=== PATIENT | female | born 1955 | race Two or more races ===

== ENCOUNTER → 2017-02-21 | Outpatient (CLI) | payer OTHER, MEDICAID ==
[~2017-02-21] MED LIST: /ESCI10TA; XANA1TAB2; [UNRECOGNIZED DRUG - REMARK]
--- NOTE | 2017-03-05 00:11 | ECWPNPC ---
PATIENT NAME: NEERU VOSS : 1955 GENDER: FEMALE VISIT DATE: 02/21/2017 DISCHARGE DATE: 02/21/17 1147 VISIT LOCKED DATE TIME: PHYSICIAN: SHERYL LU RESOURCE: SHERYL LU REASON FOR APPOINTMENT 1. BACK PAIN/LEG NUMBNESS HISTORY OF PRESENT ILLNESS HISTORY OF PRESENT ILLNESS: PAIN THE PATIENT DESCRIBES THE PAIN... FALL RISK SCREENING: SCREENING :NO FALLS IN THE PAST YEAR TODAY'S VISIT: NOTES: REFERRED BY DR HAWKINS FOR CHRONIC LOW BACK PAIN UNRESPONSIVE TO CONSERVATIVE TREATMENT INCLUDING PHYSICAL THERAPY AND MEDS.ONSET OF PAIN AFTER HORSEBACK RIDING EVENT 2008. HAD TRAUMATIC BRAIN INJURY WHEN AWAKE HAD NUMBNESS CIRCUM FROM JUST ABOVE THE KNEEALL THE WAY TO THE FOOT. WORSE DAY PROGRESSES. PAIN IS CONSISTANT THROUGHOUT ALL THE WAY TO THE FOOT. PAIN IS A DEEP ACHE FROM THE BONE. HAD RECENT INJECT INJECTION IN HIP AREA IN HIP AREA WHICH BROUGHT THE FIRST RELIEF TO THE LOW BACK HAS HOME PT AND US TO LOW BACK HELPS. TENS CAN BE HELPFUL. HAD BEEN SEEN AT [facility] FOR ALMOST 2 YEARSWAS EVENTUALLY SEEN AT [facility] AND EVENTUALLY HAD 4 DIFFERNT SURGERY. HAD VASCULAR COMPROMISE TO LEFT EYE WHICH PRODUCED A 3RD NERVE PALSY AND HEADACHE. TREATS WITH STEROIDS AND SUMATRIPTAN. HAS ALSO USED HYPERBARIC OXYGEN WHICH THEY FELT IMPROVED HER BRAIN HEALING. HARDEST THING IS TO STAND AND WALK AND PROLONGED. RIDING IN CAR IS DIFFICULT. NO SPECIFIC SLEEP ISSUES WITH PAIN. HAS WORKED WITH DR CASTRO WITH [facility]. CURRENT MEDICATIONS TAKING SUMATRIPTAN SUCCINATE 100 MG TABLET 1 TABLET NEEDED ORALLY TWICE A DAY TAKING VALIUM 5 MG TABLET 1 TABLET NEEDED ORALLY TWICE A DAY TAKING HYDROXYZINE HCL 50 MG TABLET 1 TABLET NEEDED ORALLY BID TAKING ESTRADIOL 10 % CREAM TAKING PREDNISONE 20 MG TABLET 1 TABLET ORALLY ONCE A DAY PRN TAKING LIDODERM 5 % PATCH 1 PATCH TO SKIN REMOVE AFTER 12 HOURS EXTERNALLY ONCE A DAY TAKING DHEA 50 50 MG CAPSULE ORALLY TAKING VITAMIN D 2000 UNIT TABLET 1 TABLET ORALLY ONCE A DAY TAKING VITAMIN B COMPLEX - CAPSULE ORALLY TAKING OMEGA 3 350 MG CAPSULE 1 CAPSULE ORALLY ONCE A DAY TAKING L-TRYPTOPHAN 500 MG CAPSULE 1 CAPSULE ORALLY ONCE A DAY TAKING MAGNESIUM 200 MG TABLET 2 TABLETS WITH A MEAL ORALLY ONCE A DAY TAKING BIOTIN 5000 5 MG CAPSULE 1 CAPSULE ORALLY ONCE A DAY TAKING PUMPKIN SEED OIL - CAPSULE ORALLY TAKING ZINC 30 MG TABLET 1 TABLET WITH A MEAL ORALLY ONCE A DAY UNKNOWN SUMAVEL DOSEPRO 6 MG/0.5ML SOLUTION JET-INJECTOR SUBCUTANEOUS UNKNOWN AZELASTINE HCL 0.1 % SOLUTION NASAL MEDICATION LIST REVIEWED AND RECONCILED WITH THE PATIENT PAST MEDICAL HISTORY PTSD -CHRONIC HEAD INJURY WITH SUBARACHNOID HEMMORRAGE (2008) TRAUMATIC BRAIN INJURY (2010) WITH SUBARACHNOID HEMORRAGE HYPERLIPIDEMIA MIGRAINES GERD INSOMNIA, MOOD DISORDER, ADJUSTMENT DISORDER HERPES SYMPLEX TYPE 1 BASAL CELL CARCINOMA CHRONIC OTITIS MEDIA SECONDARY INSOMNIA BLADDER HYPERSENSITIVITY CRANIAL NERVE INJURY LEFT OCULOMOTOR ADJUSTMENT DISORDER HYPERLIPIDEMIA MOOD DISORDER ELEVATED LIVER ENZYMES GERD W/O ESOPHAGITIS ALLERGIES NEURONTIN: BLURRED VISION, RASH, ANXIETY: ALLERGY BACTRIM DS: NOSEBLEEDS: SIDE EFFECTS AMITRIPTYLINE HCL: AGITATION: SIDE EFFECTS LUNESTA: RESTLESNESS: SIDE EFFECTS TRAZODONE HCL: SLEEPLESSNESS: SIDE EFFECTS TRILEPTAL: DOUBLE VISION: ALLERGY AVELOX: DOUBLE VISION: ALLERGY MOVANTIC: ALLERGY DILAUDID: HEADACHE: ALLERGY OMNICEF: ALLERGY ABILIFY: AGITATION: ALLERGY DEPAKOTE: SLEEPLESS: ALLERGY LAMICTAL: RASH: ALLERGY WELLBUTRIN: SLEEPLESS: ALLERGY LATEX: RASH: ALLERGY PCN: FEVER-RASH: ALLERGY SULFACETAMIDE: ALLERGY PRAZOSIN: SYNCOPE: ALLERGY RIZATRIPTAN: AGITATION: ALLERGY BELSOMRA: DIZZINESS: ALLERGY ROZEREM: SLEEPLESS: ALLERGY TEMAZEPAM: INEFFECTIVE: LACK OF THERAPEUTIC EFFECT NARATRIPTAN: EXTREME FATIGUE, MUSCLE ACHE: ALLERGY CORICIDIN: INEFFECTIVE: LACK OF THERAPEUTIC EFFECT TAURIN: INEFFECTIVE: LACK OF THERAPEUTIC EFFECT TOVIAZ: DOUBLE VISION: ALLERGY METHYLFOLATE: HEADACHES: SIDE EFFECTS CLONAZEPAM: INEFFECTIVE: LACK OF THERAPEUTIC EFFECT SAPHRIS: MUSCLE TWITCHING: SIDE EFFECTS PREGNENOLONE: HEAVINESS IN CHEST: SIDE EFFECTS RISPERADONE: AGITATION: SIDE EFFECTS TRAMADOL: HEADACHE, NAUSEA, DIZZINESS: SIDE EFFECTS SURGICAL HISTORY TONSILECTOMY HEMORRHOIDECTOMY HAYLEY SALPINGOOOPHORECTOMY ESOPHAGUS STRETCH 2017 EYE SURGERY X4 MUSCLE ADJUSTMENT LEFT EAR TUBE FAMILY HISTORY FATHER: 47 YRS, DIAGNOSED WITH HYPERTENSION, HEART DISEASE MOTHER: ALIVE 88 YRS SIBLINGS: ALIVE 1DAUGHTER(S) . 4 BROTHERS, 1 SISTER. SOCIAL HISTORY GENERAL: TOBACCO USE ARE YOU A:NONSMOKER LUNG CANCER SCREENING SMOKING STATUS:NON SMOKER ALCOHOL SCREENING POINTS0 INTERPRETATIONNEGATIVE UATSDIN STILDKSG73 NONE LANGUAGE LANGUAGES SPOKEN:TAIWANESE LEARNING BARRIERS / SPECIAL NEEDS BARRIERS TO LEARNING?YES COMMENTS LONG AND SHORT TERM MEMORY LOSS HEARING IMPAIRED?YES VISION IMPAIRED?YES :CORRECTIVE LENSES COGNITIVELY IMPAIRED?YES :LEARNING DISABILITY READINESS TO LEARN?YES LEARNING PREFERENCES?YES :BOOKLETS, HANDOUTS, DEMONSTRATION/VERBAL INSTRUCTION HOSPITALIZATION/MAJOR DIAGNOSTIC PROCEDURE SURGERY RELATED REVIEW OF SYSTEMS REVIEWED BY: PROVIDER: SHERYL LUNA . CONSTITUTIONAL: ANY CHANGE IN YOUR MEDICAL CONDITION? NO . CHILLS NO . FEVER NO . INFECTION: DO YOU HAVE NEW INFECTIONS? NO . DO YOU HAVE HISTORY OF MRSA? NO . MUSCULOSKELETAL: ANY NEW PATTERNS OF PAIN OR NUMBNESS? NO . GASTROENTEROLOGY: ANY NEW CHANGE IN BOWEL CONTROL? YES, PT STATES SINCE TRAUMATIC BRAIN INJURY, LOSS OF BLADDER AND BOWEL CONTROL . GENITOURINARY: ANY NEW CHANGE IN BLADDER CONTROL? YES, PT STATES SINCE TRAUMATIC BRAIN INJURY, LOSS OF BOWEL AND BLADDER CONTROL . IS THERE A CHANCE YOU COULD BE ? NO . HEMATOLOGY/LYMPH: DO YOU TAKE ANY BLOOD THINNERS? (FOR EXAMPLE- COUMADIN, PLAVIX, AGGRENOX, PLATEL, PRADAXA, OR XARELTO) NO . WHEN WAS YOUR LAST DOSE? DATE: TIME: . NEUROLOGY: HAVE YOU FALLEN IN THE PAST 6 MONTHS? NO . ANY NEW EXTREMITY NUMBNESS OR WEAKNESS? NO . HEADACHE LONG HISTORY OF HORMONE INDUCED MIGRAINES WHICH IMPROVED WITH HYSTER 2003. HAD SINUS HEADAXHES AFTER THIS INTERMITTANT THEY WERE NOT OF THE SAME SEVERITY. AFTER HEAD INJURY HEADACHES BEGAN BEHIND LEFT EYE. OVER LAST YEAR ARE CONSTANT, BEHIND LEFT EYE. MARY TRIPTAN CAN HELP. IF NAUSEA STARTS GOES TO ER [facility] AND THEY DO IV MEDS WHICH BRING IT UNDER CONTROL. +PHOTO, +/-PHONO. FEELS WEAK ALL OVER, NO DIFFICULTY WITH WORD FINDING. HAS HAD 4 TREATMENT WITH BOTOX WITH NO RESPOSE (DENT NEUROSURGICAL) . CARDIOLOGY: DO YOU HAVE A PACEMAKER OR DEFIBRILLATOR? NO . RESPIRATORY: HAVE YOU BEEN SICK IN THE PAST WEEK? NO . FEVER NO . FLU LIKE SYMPTOMS? NO . COUGH NO . INTEGUMENTARY: DO YOU HAVE ANY RASHES OR OPEN SORES? NO . ALLERGIC/IMMUNO: ARE YOU ALLERGIC TO SHELLFISH OR IV DYE? NO . ANY NEW ALLERGIES? NO . PSYCHIATRIC: DO YOU HAVE THOUGHTS OF HURTING YOURSELF OR SOMEONE ELSE? NO . ARE YOU ABUSED, NEGLECTED, OR IN AN UNSAFE ENVIRONMENT? NO . ENDOCRINOLOGY: ARE YOU DIABETIC? NO . OTHER: DO YOU NEED ANY PRESCRIPTIONS? NO . IF YES, PLEASE LIST: ____ . ANY NEW PROBLEMS WITH YOUR MEDICATIONS? NO . WHEN DID YOU LAST EAT? ____ . WHEN DID YOU LAST DRINK? ____ . WHAT DID YOU LAST DRINK? ____ . NAME OF PERSON DRIVING YOU HOME? ____ . DO YOU HAVE ANY OTHER QUESTIONS OR CONCERNS NO . VITAL SIGNS WT 190 LBS, HT 59 IN, BMI 38.37 INDEX, BP 159/105 MM HG, HR 98 /MIN, RR 18 /MIN, TEMP 98 F,0 F, OXYGEN SAT % 97%, NA INITIALS AW 0858, REVIEWED BY: EMLET NURSE KNOW ABOUT BP. EXAMINATION GENERAL EXAMINATION: GENERAL APPEARANCE:WELL GROOMED. ACCOMPANIES PATIENT AND AT TIMES INSERTS SELF INTO DISCUSSION TO GIVE ANSWERS. PSYCHALERT , ORIENTED X 3 , APPROPRIATE MOOD AND AFFECT . HEENT:NORMOCEPHALIC, NO LYMPHADENOPATHY, NO THYROMEGLY. LUNGS:CLEAR TO AUSCULTATION BILATERALLY, NO WHEEZES, RALES OR RHONCHI. HEART:HEART RATE REGULAR, NORMAL S1S2, NO MURMURS, CLICK OR RUBS, NO CAROTID BRUITS. MUSCULOSKELETAL:IS ABLE TO FLEX TO 90+DEGREES , EXTEND TO 20 DEGREES AND ROTATE WITHOUT DIFFICULTY. SOME WEAKNESS WITH UPPER STRENGTH., NO SIGNIFICANT WEAKNESS BILATERAL LOWER EXTREMITIES RIGHT LEG STIFF. , TRIGGER POINTS AND TIGHT FIBROUS BANDS IDENTIFIED OVER CERVICAL PARASPINOUS MUSCLES AND ACROSS THE LUMBOSACRAL AXIS.. EXTREMITIES:COMPRESSION SOCK FROM MID THIGHT TO FOOT ON RIGHT. TRACE EDEMA APPRECIATED RLE.. NEUROLOGIC EXAM: DTR'S TRACE TO ABSENT RLE, 1+ BILATERAL UPPER EXTREMITIES, LEFT LOWER EXTREMITY. OTHER. GAZE MILDLY DISCONG WITH WEAKNESS NOTED ON RIGHT. . EOM S INTACT WITHOUT NYSTAGMUS. GOOD SHOULDER SHRUG. SPEACH DELIBERATE BUT NONDYSARTHIC. SIGNIFICANT LOSS OF SENSATION FROM HIP TO TOES RIGHT LOWER EXTREMITY ONLY . DIAGNOSTIC TESTS REVIEWEDMRI OF LUMBAR SPINE COMPLETED 08/10/15 REVIEWED WITH PATIENT AND . DISC PROTRUSION WITH IMPINGEMENT NOTED AT L3-4. . ASSESSMENTS LUMBAR FACET ARTHROPATHY - M12.88 (PRIMARY) LUMBAR DISC DISPLACEMENT WITHOUT MYELOPATHY - M51.26 TREATMENT LUMBAR FACET ARTHROPATHY INJECTION FACET JOINT/NERVE KAELA/SHERYL SILVA 02/21/2017 11:18:22 AM > DIAGNOSTIC RIGHT LUMBAR FACET BLOCK NOTES: CONSIDER FOLLOWUP AT [facility], [place] OR [facility] REGARDING CENTAL PAIN SYNDROME - POSSIBLE THALMIC INJURY WITH HEAD INJRY,FACET JOINT INJECTION MATERIAL WAS PRINTED, REVIEWED AND GIVEN TO PT. PROCEDURE CODES FA211 ESTABILISHED PATIENT [facility] CHARGE DISPOSITION & COMMUNICATION FOLLOW UP AFTER INJECTION (REASON: CHECK AUTH FOR DIAGNOSTIC LUMBAR FACET BLOSK L3-4, L4-5 AND L5-S1 RIGHT) ELECTRONICALLY SIGNED BY RISA LACKEY ON 03/04/2017 AT 10:21 AM EDT DISCLAIMER : THIS IS A VISIT SUMMARY EXTRACTED FROM THE [employer] CHART. IT IS NOT A COPY OF THE [employer] PROGRESS NOTE. MTDD
== END ==
LOC: M PAIN 09:00
PROVIDERS: ATTEND Nurse Practitioner Family
DX: G89.29 Other chronic pain (principal); M12.88 Other specific arthropathies, not elsewhere classified, other specified site; M51.26 Other intervertebral disc displacement, lumbar region; F43.10 Post-traumatic stress disorder, unspecified; E78.5 Hyperlipidemia, unspecified; G43.909 Migraine, unspecified, not intractable, without status migrainosus; K21.9 Gastro-esophageal reflux disease without esophagitis; G47.00 Insomnia, unspecified; F43.20 Adjustment disorder, unspecified; Z88.1 Allergy status to other antibiotic agents; Z91.040 Latex allergy status; Z88.2 Allergy status to sulfonamides; Z88.5 Allergy status to narcotic agent; Z88.8 Allergy status to other drugs, medicaments and biological substances; Z79.891 Long term (current) use of opiate analgesic; Z79.899 Other long term (current) drug therapy; Z87.820 Personal history of traumatic brain injury

== ENCOUNTER → 2017-03-26 | Outpatient (CLI) | payer BC, OTHER, MEDICAID ==
--- NOTE | 2017-04-07 23:54 | ECWPNPC ---
PATIENT NAME: NEERU VOSS : 1955 GENDER: FEMALE VISIT DATE: 03/26/2017 DISCHARGE DATE: 03/26/17 1334 VISIT LOCKED DATE TIME: PHYSICIAN: CRISTINO CHINO RESOURCE: CRISTINO CHINO REASON FOR APPOINTMENT 1. LOW BACK PAIN HISTORY OF PRESENT ILLNESS HISTORY OF PRESENT ILLNESS: PAIN THE PATIENT DESCRIBES THE PAIN... 61 YEAR OLD FEMALE PATIENT WITH HISTORY OF CHRONIC LOW BACK PAIN. PATIENT DESCRIBES THE PAIN ACHING, STABBING, SORE, TENDER, WITH A PAIN SCORE OF 6/10. PATIENT REPORTS HAVING TIGHTNESS IN HER BACK AND REPORTS IT MAKES IT DIFFICULT TO DO EVERYDAY THIS. CURRENTLY THE PATIENT IS USING LIDODERM PATCH TO AID IN PAIN RELIEF. PATIENT DENIES UNEXPLAINABLE WEIGHT LOSS, FEVER, CHILLS, NEW CHANGES ON HER URINARY OR BOWEL CONTROL. FALL RISK SCREENING: SCREENING :NO FALLS IN THE PAST YEAR CURRENT MEDICATIONS TAKING SUMATRIPTAN SUCCINATE 100 MG TABLET 1 TABLET NEEDED ORALLY TWICE A DAY TAKING VALIUM 5 MG TABLET 1 TABLET NEEDED ORALLY TWICE A DAY TAKING HYDROXYZINE HCL 50 MG TABLET 1 TABLET NEEDED ORALLY BID TAKING ESTRADIOL 10 % CREAM TAKING PREDNISONE 20 MG TABLET 1 TABLET ORALLY ONCE A DAY PRN TAKING LIDODERM 5 % PATCH 1 PATCH TO SKIN REMOVE AFTER 12 HOURS EXTERNALLY ONCE A DAY TAKING DHEA 50 50 MG CAPSULE ORALLY TAKING VITAMIN D 2000 UNIT TABLET 1 TABLET ORALLY ONCE A DAY TAKING VITAMIN B COMPLEX - CAPSULE ORALLY TAKING OMEGA 3 350 MG CAPSULE 1 CAPSULE ORALLY ONCE A DAY TAKING L-TRYPTOPHAN 500 MG CAPSULE 1 CAPSULE ORALLY ONCE A DAY TAKING MAGNESIUM 200 MG TABLET 2 TABLETS WITH A MEAL ORALLY ONCE A DAY TAKING BIOTIN 5000 5 MG CAPSULE 1 CAPSULE ORALLY ONCE A DAY TAKING PUMPKIN SEED OIL - CAPSULE ORALLY TAKING ZINC 30 MG TABLET 1 TABLET WITH A MEAL ORALLY ONCE A DAY UNKNOWN SUMAVEL DOSEPRO 6 MG/0.5ML SOLUTION JET-INJECTOR SUBCUTANEOUS UNKNOWN AZELASTINE HCL 0.1 % SOLUTION NASAL MEDICATION LIST REVIEWED AND RECONCILED WITH THE PATIENT PAST MEDICAL HISTORY PTSD -CHRONIC HEAD INJURY WITH SUBARACHNOID HEMMORRAGE (2008) TRAUMATIC BRAIN INJURY (2010) WITH SUBARACHNOID HEMORRAGE HYPERLIPIDEMIA MIGRAINES GERD INSOMNIA, MOOD DISORDER, ADJUSTMENT DISORDER HERPES SYMPLEX TYPE 1 BASAL CELL CARCINOMA CHRONIC OTITIS MEDIA SECONDARY INSOMNIA BLADDER HYPERSENSITIVITY CRANIAL NERVE INJURY LEFT OCULOMOTOR ADJUSTMENT DISORDER HYPERLIPIDEMIA MOOD DISORDER ELEVATED LIVER ENZYMES GERD W/O ESOPHAGITIS ALLERGIES NEURONTIN: BLURRED VISION, RASH, ANXIETY: ALLERGY BACTRIM DS: NOSEBLEEDS: SIDE EFFECTS AMITRIPTYLINE HCL: AGITATION: SIDE EFFECTS LUNESTA: RESTLESNESS: SIDE EFFECTS TRAZODONE HCL: SLEEPLESSNESS: SIDE EFFECTS TRILEPTAL: DOUBLE VISION: ALLERGY AVELOX: DOUBLE VISION: ALLERGY MOVANTIC: ALLERGY DILAUDID: HEADACHE: ALLERGY OMNICEF: ALLERGY ABILIFY: AGITATION: ALLERGY DEPAKOTE: SLEEPLESS: ALLERGY LAMICTAL: RASH: ALLERGY WELLBUTRIN: SLEEPLESS: ALLERGY LATEX: RASH: ALLERGY PCN: FEVER-RASH: ALLERGY SULFACETAMIDE: ALLERGY PRAZOSIN: SYNCOPE: ALLERGY RIZATRIPTAN: AGITATION: ALLERGY BELSOMRA: DIZZINESS: ALLERGY ROZEREM: SLEEPLESS: ALLERGY TEMAZEPAM: INEFFECTIVE: LACK OF THERAPEUTIC EFFECT NARATRIPTAN: EXTREME FATIGUE, MUSCLE ACHE: ALLERGY CORICIDIN: INEFFECTIVE: LACK OF THERAPEUTIC EFFECT TAURIN: INEFFECTIVE: LACK OF THERAPEUTIC EFFECT TOVIAZ: DOUBLE VISION: ALLERGY METHYLFOLATE: HEADACHES: SIDE EFFECTS CLONAZEPAM: INEFFECTIVE: LACK OF THERAPEUTIC EFFECT SAPHRIS: MUSCLE TWITCHING: SIDE EFFECTS PREGNENOLONE: HEAVINESS IN CHEST: SIDE EFFECTS RISPERADONE: AGITATION: SIDE EFFECTS TRAMADOL: HEADACHE, NAUSEA, DIZZINESS: SIDE EFFECTS REVIEW OF SYSTEMS REVIEWED BY: PROVIDER: CRISTINO CHINO MD . CONSTITUTIONAL: ANY CHANGE IN YOUR MEDICAL CONDITION? NO . CHILLS NO . FEVER NO . INFECTION: DO YOU HAVE NEW INFECTIONS? NO . DO YOU HAVE HISTORY OF MRSA? NO . MUSCULOSKELETAL: ANY NEW PATTERNS OF PAIN OR NUMBNESS? NO . GASTROENTEROLOGY: ANY NEW CHANGE IN BOWEL CONTROL? NO . GENITOURINARY: ANY NEW CHANGE IN BLADDER CONTROL? NO . IS THERE A CHANCE YOU COULD BE ? NO . HEMATOLOGY/LYMPH: DO YOU TAKE ANY BLOOD THINNERS? (FOR EXAMPLE- COUMADIN, PLAVIX, AGGRENOX, PLATEL, PRADAXA, OR XARELTO) NO . WHEN WAS YOUR LAST DOSE? DATE: TIME: . NEUROLOGY: HAVE YOU FALLEN IN THE PAST 6 MONTHS? NO . ANY NEW EXTREMITY NUMBNESS OR WEAKNESS? NO . CARDIOLOGY: DO YOU HAVE A PACEMAKER OR DEFIBRILLATOR? NO . RESPIRATORY: HAVE YOU BEEN SICK IN THE PAST WEEK? NO . FEVER NO . FLU LIKE SYMPTOMS? NO . COUGH NO . INTEGUMENTARY: DO YOU HAVE ANY RASHES OR OPEN SORES? NO . ALLERGIC/IMMUNO: ARE YOU ALLERGIC TO SHELLFISH OR IV DYE? YES, IV DYE . ANY NEW ALLERGIES? NO . PSYCHIATRIC: DO YOU HAVE THOUGHTS OF HURTING YOURSELF OR SOMEONE ELSE? NO . ARE YOU ABUSED, NEGLECTED, OR IN AN UNSAFE ENVIRONMENT? NO . ENDOCRINOLOGY: ARE YOU DIABETIC? NO . OTHER: DO YOU NEED ANY PRESCRIPTIONS? NO . IF YES, PLEASE LIST: ____ . ANY NEW PROBLEMS WITH YOUR MEDICATIONS? NO . WHEN DID YOU LAST EAT? 03-25-17 PM . WHEN DID YOU LAST DRINK? 03-26-17 0500 . WHAT DID YOU LAST DRINK? WATER . NAME OF PERSON DRIVING YOU HOME? LOUIS VOSS . DO YOU HAVE ANY OTHER QUESTIONS OR CONCERNS NO . VITAL SIGNS WT 197.2 LBS, HT 59 IN, BMI 39.83 INDEX, BP 138/84 MM HG, HR 98 /MIN, RR 18 /MIN, TEMP 98.7 F, OXYGEN SAT % 94%, NA INITIALS CM. EXAMINATION : PATIENT IS ALERT O X 3 AND COOPERATIVE. TENDERNESS IN THE LOWER BACK AND PARASPINAL MUSCLE GROUP. BANDS OF TISSUE, RESTRICTION OF MOVEMENT, AND PRESENCE OF TRIGGER POINTS IN THE LOWER BACK AREA. MRI OF THE LUMBAR SPINE DONE ON 08/10/15 SHOWS A DISC PROTRUSTION AT L3-L4. ASSESSMENTS MYALGIA - M79.1 (PRIMARY) INTERVERTEBRAL DISC DISORDER WITH RADICULOPATHY OF LUMBAR REGION - M51.16 TREATMENT MYALGIA NOTES: WE DISCUSSED SEVERAL ISSUES WITH MRS. VOSS'S PAIN MANAGEMENT CASE. AT THIS TIME THE PATIENT WILL CONTINUE WITH THE SAME MEDICATION REGIME BEFORE. DUE TO THE BANDS OF TISSUE AND RESTRICTION OF MOVEMENT I WOULD LIKE TO PROCEED WITH TRIGGER POINT INJECTION. WE DISCUSSED THE RISKS, BENENFITS, AND ALTNERATIVES OF THE INJECTION AND THE PATIENT WOULD LIKE TO PROCEED AT THIS TIME. INSTRUCTIONS WERE GIVEN, QUESTIONS WERE ANSWERED, PATIENT REPORTS UNDERSTANDING AND AGREES WITH THE PLAN. I, MERE LENTZ, DOCUMENTED THE ABOVE INFORMATION ACTING A SCRIBE FOR DR. CHINO. I HAVE REVIEWED THE ABOVE DOCUMENT, WRITTEN BY MERE OLIVIAIBArpit AND I VERIFY THAT IT IS ACCURATE. PROCEDURE CODES FA211 ESTABILISHED PATIENT [facility] FAC[facility] CHARGE [id number] DOC MEDS VERIFIED W/PT OR RE [id number] PAIN ASSESS POS TOOL F/U PLAN DOC DISPOSITION & COMMUNICATION FOLLOW UP TPI AFTER APPROVAL ELECTRONICALLY SIGNED BY CRISTINO CHINO MD ON 04/07/2017 AT 03:37 PM EDT DISCLAIMER : THIS IS A VISIT SUMMARY EXTRACTED FROM THE [employer] CHART. IT IS NOT A COPY OF THE [employer] PROGRESS NOTE. LOPEZ
== END ==
LOC: M PAIN 10:20
PROVIDERS: ATTEND Anesthesiology
DX: G89.29 Other chronic pain (principal); M51.16 Intervertebral disc disorders with radiculopathy, lumbar region; M79.1 Myalgia; F43.10 Post-traumatic stress disorder, unspecified; E78.5 Hyperlipidemia, unspecified; G43.909 Migraine, unspecified, not intractable, without status migrainosus; K21.9 Gastro-esophageal reflux disease without esophagitis; G47.00 Insomnia, unspecified; Z88.1 Allergy status to other antibiotic agents; Z91.040 Latex allergy status; Z99.2 Dependence on renal dialysis; Z88.5 Allergy status to narcotic agent; Z88.8 Allergy status to other drugs, medicaments and biological substances; Z79.899 Other long term (current) drug therapy

== ENCOUNTER → 2017-03-26 | Outpatient (CLI) | payer BC, OTHER, MEDICAID ==
[~2017-03-26] MED LIST changes: +BUPIVACAINE HCL 0.25% 10 ML VIAL As Ordered ONE; +BUPIVACAINE HCL 0.25% 30 ML VIAL As Ordered ONE; +diazePAM 5 MG TAB As Ordered ONE; +oxyCODONE 5MG TAB As Ordered ONE
--- NOTE | 2017-04-02 00:29 | ECWPNPC ---
PATIENT NAME: NEERU VOSS : 1955 GENDER: FEMALE VISIT DATE: 03/26/2017 DISCHARGE DATE: 03/26/17 1505 VISIT LOCKED DATE TIME: PHYSICIAN: CRISTINO CHINO RESOURCE: CRISTINO CHINO REASON FOR APPOINTMENT 1. TPI HISTORY OF PRESENT ILLNESS HISTORY OF PRESENT ILLNESS: PAIN THE PATIENT DESCRIBES THE PAIN... FALL RISK SCREENING: SCREENING :NO FALLS IN THE PAST YEAR CURRENT MEDICATIONS TAKING SUMATRIPTAN SUCCINATE 100 MG TABLET 1 TABLET NEEDED ORALLY TWICE A DAY, NOTES: 03/26/17199 TAKING VALIUM 5 MG TABLET 1 TABLET NEEDED ORALLY TWICE A DAY, NOTES: 03/26/230 TAKING HYDROXYZINE HCL 50 MG TABLET 1 TABLET NEEDED ORALLY BID, NOTES: 03/26/230 TAKING ESTRADIOL 10 % CREAM , NOTES: 03/25/17799 TAKING PREDNISONE 20 MG TABLET 1 TABLET ORALLY ONCE A DAY PRN, NOTES: 03/26/17229 TAKING LIDODERM 5 % PATCH 1 PATCH TO SKIN REMOVE AFTER 12 HOURS EXTERNALLY ONCE A DAY, NOTES: 03/25/17 TAKING VITAMIN D 2000 UNIT TABLET 1 TABLET ORALLY ONCE A DAY, NOTES: 03/25/17799 TAKING VITAMIN B COMPLEX - CAPSULE ORALLY , NOTES: 03/25/17799 TAKING OMEGA 3 350 MG CAPSULE 1 CAPSULE ORALLY ONCE A DAY, NOTES: 03/25/17799 TAKING L-TRYPTOPHAN 500 MG CAPSULE 1 CAPSULE ORALLY ONCE A DAY, NOTES: 03/25/17799 TAKING MAGNESIUM 200 MG TABLET 2 TABLETS WITH A MEAL ORALLY ONCE A DAY, NOTES: 03/25/17799 TAKING BIOTIN 5000 5 MG CAPSULE 1 CAPSULE ORALLY ONCE A DAY, NOTES: 03/25/17799 TAKING PUMPKIN SEED OIL - CAPSULE ORALLY , NOTES: 03/25/17799 TAKING ZINC 30 MG TABLET 1 TABLET WITH A MEAL ORALLY ONCE A DAY, NOTES: 03/25/17799 NOT-TAKING DHEA 50 50 MG CAPSULE ORALLY UNKNOWN SUMAVEL DOSEPRO 6 MG/0.5ML SOLUTION JET-INJECTOR SUBCUTANEOUS UNKNOWN AZELASTINE HCL 0.1 % SOLUTION NASAL MEDICATION LIST REVIEWED AND RECONCILED WITH THE PATIENT PAST MEDICAL HISTORY PTSD -CHRONIC HEAD INJURY WITH SUBARACHNOID HEMMORRAGE (2008) TRAUMATIC BRAIN INJURY (2010) WITH SUBARACHNOID HEMORRAGE HYPERLIPIDEMIA MIGRAINES GERD INSOMNIA, MOOD DISORDER, ADJUSTMENT DISORDER HERPES SYMPLEX TYPE 1 BASAL CELL CARCINOMA CHRONIC OTITIS MEDIA SECONDARY INSOMNIA BLADDER HYPERSENSITIVITY CRANIAL NERVE INJURY LEFT OCULOMOTOR ADJUSTMENT DISORDER HYPERLIPIDEMIA MOOD DISORDER ELEVATED LIVER ENZYMES GERD W/O ESOPHAGITIS ALLERGIES NEURONTIN: BLURRED VISION, RASH, ANXIETY: ALLERGY BACTRIM DS: NOSEBLEEDS: SIDE EFFECTS AMITRIPTYLINE HCL: AGITATION: SIDE EFFECTS LUNESTA: RESTLESNESS: SIDE EFFECTS TRAZODONE HCL: SLEEPLESSNESS: SIDE EFFECTS TRILEPTAL: DOUBLE VISION: ALLERGY AVELOX: DOUBLE VISION: ALLERGY MOVANTIC: ALLERGY DILAUDID: HEADACHE: ALLERGY OMNICEF: ALLERGY ABILIFY: AGITATION: ALLERGY DEPAKOTE: SLEEPLESS: ALLERGY LAMICTAL: RASH: ALLERGY WELLBUTRIN: SLEEPLESS: ALLERGY LATEX: RASH: ALLERGY PCN: FEVER-RASH: ALLERGY SULFACETAMIDE: ALLERGY PRAZOSIN: SYNCOPE: ALLERGY RIZATRIPTAN: AGITATION: ALLERGY BELSOMRA: DIZZINESS: ALLERGY ROZEREM: SLEEPLESS: ALLERGY TEMAZEPAM: INEFFECTIVE: LACK OF THERAPEUTIC EFFECT NARATRIPTAN: EXTREME FATIGUE, MUSCLE ACHE: ALLERGY CORICIDIN: INEFFECTIVE: LACK OF THERAPEUTIC EFFECT TAURIN: INEFFECTIVE: LACK OF THERAPEUTIC EFFECT TOVIAZ: DOUBLE VISION: ALLERGY METHYLFOLATE: HEADACHES: SIDE EFFECTS CLONAZEPAM: INEFFECTIVE: LACK OF THERAPEUTIC EFFECT SAPHRIS: MUSCLE TWITCHING: SIDE EFFECTS PREGNENOLONE: HEAVINESS IN CHEST: SIDE EFFECTS RISPERADONE: AGITATION: SIDE EFFECTS TRAMADOL: HEADACHE, NAUSEA, DIZZINESS: SIDE EFFECTS REVIEW OF SYSTEMS REVIEWED BY: PROVIDER: . CONSTITUTIONAL: ANY CHANGE IN YOUR MEDICAL CONDITION? NO . CHILLS NO . FEVER NO . INFECTION: DO YOU HAVE NEW INFECTIONS? NO . DO YOU HAVE HISTORY OF MRSA? NO . MUSCULOSKELETAL: ANY NEW PATTERNS OF PAIN OR NUMBNESS? NO . GASTROENTEROLOGY: ANY NEW CHANGE IN BOWEL CONTROL? NO . GENITOURINARY: ANY NEW CHANGE IN BLADDER CONTROL? NO . IS THERE A CHANCE YOU COULD BE ? NO . HEMATOLOGY/LYMPH: DO YOU TAKE ANY BLOOD THINNERS? (FOR EXAMPLE- COUMADIN, PLAVIX, AGGRENOX, PLATEL, PRADAXA, OR XARELTO) NO . WHEN WAS YOUR LAST DOSE? DATE: TIME: . NEUROLOGY: HAVE YOU FALLEN IN THE PAST 6 MONTHS? NO . ANY NEW EXTREMITY NUMBNESS OR WEAKNESS? NO . CARDIOLOGY: DO YOU HAVE A PACEMAKER OR DEFIBRILLATOR? NO . RESPIRATORY: HAVE YOU BEEN SICK IN THE PAST WEEK? NO . FEVER NO . FLU LIKE SYMPTOMS? NO . COUGH NO . INTEGUMENTARY: DO YOU HAVE ANY RASHES OR OPEN SORES? NO . ALLERGIC/IMMUNO: ARE YOU ALLERGIC TO SHELLFISH OR IV DYE? YES IV DYE CAUSED HEADACHES . ANY NEW ALLERGIES? NO . PSYCHIATRIC: DO YOU HAVE THOUGHTS OF HURTING YOURSELF OR SOMEONE ELSE? NO . ARE YOU ABUSED, NEGLECTED, OR IN AN UNSAFE ENVIRONMENT? NO . ENDOCRINOLOGY: ARE YOU DIABETIC? NO . OTHER: DO YOU NEED ANY PRESCRIPTIONS? NO . IF YES, PLEASE LIST: ____ . ANY NEW PROBLEMS WITH YOUR MEDICATIONS? NO . WHEN DID YOU LAST EAT? ____03/25/17 2400 . WHEN DID YOU LAST DRINK? ____03/26/17 0500 . WHAT DID YOU LAST DRINK? ____WATER . NAME OF PERSON DRIVING YOU HOME? ____GERALD . DO YOU HAVE ANY OTHER QUESTIONS OR CONCERNS NO . VITAL SIGNS WT 197.2 LBS, HT 59 IN, BMI 39.83 INDEX, BP 138/84 MM HG, HR 98 /MIN, RR 18 /MIN, TEMP 98.7 F, OXYGEN SAT % 94, SAFE IN ENV? (Y/N) YES, NA INITIALS MP 1131, REVIEWED BY: KATINA. ASSESSMENTS MYALGIA - M79.1 (PRIMARY) PROCEDURES PN TRIGGER POINT INJECTION NO STEROIDS PRE PROCEDURE DIAGNOSIS 1. MYALGIA 2. PAIN AT RIGHT LOWER BACK AREA POST PROCEDURE DIAGNOSIS 1. MYALGIA 2. PAIN AT RIGHT LOWER BACK AREA PROCEDURE TRIGGER POINT INJECTION AT RIGHT LOWER BACK AREA SURGEON DR. CRISTINO CHINO CLAIM ANALYST NONE ANESTHESIA LOCAL PRE PROCEDURE NOTE 61 YEAR-OLD PATIENT WITH HISTORY OF CHRONIC PAIN AT RIGHT LOWER BACK AREA. I EVALUATED THE PATIENT AND REVIEWED THE CHART. THERE IS EVIDENCE OF BANDS OF TISSUE WITH RESTRICTION OF MOVEMENT AND PRESENCE OF TRIGGER POINT AT THE AFFECTED AREA. I WENT OVER THE RISKS, ALTERNATIVES, AND BENEFITS ASSOCIATED WITH THIS PROCEDURE. THE PATIENT WOULD LIKE TO PROCEED AND GAVE CONSENT TO PERFORM THE PROCEDURE. THE PATIENT DENIES UNEXPLAINABLE WEIGHT LOSS, FEVER, CHILLS, OR NEW CHANGES IN URINARY OR BOWEL CONTROL. DESCRIPTION OF PROCEDURE THE PATIENT WAS BROUGHT TO THE PROCEDURE ROOM AND PLACED IN THE SITTING PRONE POSITION. THE AREA WAS CLEANED WITH ALCOHOL. THE PROCEDURE WAS DONE USING ASEPTIC STERILE TECHNIQUES. I CHECKED LATERALITY AND THE LEVEL WHERE THE PROCEDURE WAS GOING TO BE PERFORMED WITH THE PATIENT AND THE SUPPORTING STAFF AT THE MOMENT OF THE TIME OUT IN THE PROCEDURE ROOM. USING A 25-GAUGE NEEDLE, TRIGGER POINTS WERE INJECTED AT THE RIGHT LOWER BACK AREA WITH A TOTAL OF 40 ML OF BUPIVACAINE 0.25%. AGREED WITH THE PATIENT THE PROCEDURE WAS DONE WITHOUT STEROIDS. THERE WAS NO EVIDENCE OF BLOOD, PARESTHESIA OR CEREBROSPINAL FLUID DURING THE PROCEDURE. THE PATIENT WAS SENT TO THE RECOVERY ROOM. THE PATIENT WAS MOVING THE EXTREMITIES AND DOING WELL. THERE WAS NO COMPLICATION DURING THE PROCEDURE. POST PROCEDURE NOTE THE PATIENT WILL BE SEEN IN A FOLLOW UP IN THE NEXT FEW WEEKS. INSTRUCTIONS WERE GIVEN, QUESTIONS WERE ANSWERED, AND THE PATIENT EXPRESSED UNDERSTANDING AND AGREED WITH THE PLAN. I, MERE LENTZ, DOCUMENTED THE ABOVE INFORMATION ACTING A SCRIBE FOR DR. CHINO. I HAVE REVIEWED THE ABOVE DOCUMENT, WRITTEN BY MERE SOLITARIO AND I VERIFY THAT IT IS ACCURATE PROCEDURE CODES 68169 INJ TRIGGER POINT /2 MUSC DISPOSITION & COMMUNICATION FOLLOW UP 3 WEEKS ELECTRONICALLY SIGNED BY CRISTINO CHINO MD ON 03/31/2017 AT 12:58 PM EDT DISCLAIMER : THIS IS A VISIT SUMMARY EXTRACTED FROM THE [employer] CHART. IT IS NOT A COPY OF THE [employer] PROGRESS NOTE. LOPEZ
== END ==
LOC: M PAIN 11:00
PROVIDERS: ATTEND Anesthesiology
DX: G89.29 Other chronic pain (principal); M54.5 Low back pain; M79.1 Myalgia; F43.10 Post-traumatic stress disorder, unspecified; E78.5 Hyperlipidemia, unspecified; G43.909 Migraine, unspecified, not intractable, without status migrainosus; K21.9 Gastro-esophageal reflux disease without esophagitis; G47.00 Insomnia, unspecified; F43.20 Adjustment disorder, unspecified; F39 Unspecified mood [affective] disorder; Z91.040 Latex allergy status; Z91.041 Radiographic dye allergy status; Z88.1 Allergy status to other antibiotic agents; Z88.2 Allergy status to sulfonamides; Z88.5 Allergy status to narcotic agent; Z88.8 Allergy status to other drugs, medicaments and biological substances; Z79.52 Long term (current) use of systemic steroids; Z79.899 Other long term (current) drug therapy; Z87.820 Personal history of traumatic brain injury

== ENCOUNTER → 2017-04-03 | Outpatient (CLI) | payer BC, OTHER, MEDICAID ==
[~2017-04-03] MED LIST changes: -BUPIVACAINE HCL 0.25% 10 ML VIAL As Ordered ONE; -BUPIVACAINE HCL 0.25% 30 ML VIAL As Ordered ONE; -diazePAM 5 MG TAB As Ordered ONE; -oxyCODONE 5MG TAB As Ordered ONE
--- NOTE | 2017-04-09 23:50 | ECWPNPC ---
PATIENT NAME: NEERU VOSS : 1955 GENDER: FEMALE VISIT DATE: 04/03/2017 DISCHARGE DATE: 04/03/17 1309 VISIT LOCKED DATE TIME: PHYSICIAN: CRISTINO CHINO RESOURCE: CRISTINO CHINO REASON FOR APPOINTMENT 1. LOW BACK PAIN HISTORY OF PRESENT ILLNESS HISTORY OF PRESENT ILLNESS: PAIN THE PATIENT DESCRIBES THE PAIN... 61 YEAR OLD FEMALE PATIENT WITH HISTORY OF CHRONIC LOW BACK PAIN. PATIENT DESCRIBES THE PAIN ACHING, STABBING, SORE, TENDER, WITH A PAIN SCORE OF 10/10. PATIENT RECEIVED TRIGGER POINT INJECTIONS ON 03/26/17 AND THE PATIENT STATES THAT SINCE THE INJECTION HER PAIN HAS BECOME MORE SEVERE IN HER RIGHT LEG. MRS. VOSS STATES THAT IT FEELS THOUGH HER LEG IS NOT GETTING ANY BLOOD FLOW TO IT. PATIENT REPORTS HAVING TIGHTNESS IN HER BACK AND REPORTS IT MAKES IT DIFFICULT TO DO EVERYDAY THIS. CURRENTLY THE PATIENT IS USING LIDODERM PATCH TO AID IN PAIN RELIEF. PATIENT DENIES UNEXPLAINABLE WEIGHT LOSS, FEVER, CHILLS, NEW CHANGES ON HER URINARY OR BOWEL CONTROL. FALL RISK SCREENING: SCREENING :NO FALLS IN THE PAST YEAR CURRENT MEDICATIONS TAKING SUMATRIPTAN SUCCINATE 100 MG TABLET 1 TABLET NEEDED ORALLY TWICE A DAY TAKING VALIUM 5 MG TABLET 1 TABLET NEEDED ORALLY TWICE A DAY TAKING HYDROXYZINE HCL 50 MG TABLET 1 TABLET NEEDED ORALLY BID TAKING ESTRADIOL 10 % CREAM TRANSDERMAL DIRECTED TAKING PREDNISONE 5 MG TABLET 1 TABLET ORALLY ONCE A DAY PRN TAKING LIDODERM 5 % PATCH 1 PATCH TO SKIN REMOVE AFTER 12 HOURS EXTERNALLY ONCE A DAY TAKING MAGNESIUM 200 MG TABLET 2 TABLETS WITH A MEAL ORALLY ONCE A DAY TAKING SUMAVEL DOSEPRO 6 MG/0.5ML SOLUTION JET-INJECTOR SUBCUTANEOUS NOT-TAKING VITAMIN D 2000 UNIT TABLET 1 TABLET ORALLY ONCE A DAY NOT-TAKING VITAMIN B COMPLEX - CAPSULE ORALLY DAILY NOT-TAKING OMEGA 3 350 MG CAPSULE 1 CAPSULE ORALLY ONCE A DAY NOT-TAKING L-TRYPTOPHAN 500 MG CAPSULE 1 CAPSULE ORALLY ONCE A DAY NOT-TAKING BIOTIN 5000 5 MG CAPSULE 1 CAPSULE ORALLY ONCE A DAY NOT-TAKING PUMPKIN SEED OIL - CAPSULE ORALLY NOT-TAKING ZINC 30 MG TABLET 1 TABLET WITH A MEAL ORALLY ONCE A DAY NOT-TAKING DHEA 50 50 MG CAPSULE ORALLY NOT-TAKING AZELASTINE HCL 0.1 % SOLUTION NASAL MEDICATION LIST REVIEWED AND RECONCILED WITH THE PATIENT PAST MEDICAL HISTORY PTSD -CHRONIC HEAD INJURY WITH SUBARACHNOID HEMMORRAGE (2009) TRAUMATIC BRAIN INJURY (2011) WITH SUBARACHNOID HEMORRAGE HYPERLIPIDEMIA MIGRAINES GERD INSOMNIA, MOOD DISORDER, ADJUSTMENT DISORDER HERPES SYMPLEX TYPE 1 BASAL CELL CARCINOMA CHRONIC OTITIS MEDIA SECONDARY INSOMNIA BLADDER HYPERSENSITIVITY CRANIAL NERVE INJURY LEFT OCULOMOTOR ADJUSTMENT DISORDER HYPERLIPIDEMIA MOOD DISORDER ELEVATED LIVER ENZYMES GERD W/O ESOPHAGITIS ALLERGIES NEURONTIN: BLURRED VISION, RASH, ANXIETY: ALLERGY BACTRIM DS: NOSEBLEEDS: SIDE EFFECTS AMITRIPTYLINE HCL: AGITATION: SIDE EFFECTS LUNESTA: RESTLESNESS: SIDE EFFECTS TRAZODONE HCL: SLEEPLESSNESS: SIDE EFFECTS TRILEPTAL: DOUBLE VISION: ALLERGY AVELOX: DOUBLE VISION: ALLERGY MOVANTIC: ALLERGY DILAUDID: HEADACHE: ALLERGY OMNICEF: ALLERGY ABILIFY: AGITATION: ALLERGY DEPAKOTE: SLEEPLESS: ALLERGY LAMICTAL: RASH: ALLERGY WELLBUTRIN: SLEEPLESS: ALLERGY LATEX: RASH: ALLERGY PCN: FEVER-RASH: ALLERGY SULFACETAMIDE: ALLERGY PRAZOSIN: SYNCOPE: ALLERGY RIZATRIPTAN: AGITATION: ALLERGY BELSOMRA: DIZZINESS: ALLERGY ROZEREM: SLEEPLESS: ALLERGY TEMAZEPAM: INEFFECTIVE: LACK OF THERAPEUTIC EFFECT NARATRIPTAN: EXTREME FATIGUE, MUSCLE ACHE: ALLERGY CORICIDIN: INEFFECTIVE: LACK OF THERAPEUTIC EFFECT TAURIN: INEFFECTIVE: LACK OF THERAPEUTIC EFFECT TOVIAZ: DOUBLE VISION: ALLERGY METHYLFOLATE: HEADACHES: SIDE EFFECTS CLONAZEPAM: INEFFECTIVE: LACK OF THERAPEUTIC EFFECT SAPHRIS: MUSCLE TWITCHING: SIDE EFFECTS PREGNENOLONE: HEAVINESS IN CHEST: SIDE EFFECTS RISPERADONE: AGITATION: SIDE EFFECTS TRAMADOL: HEADACHE, NAUSEA, DIZZINESS: SIDE EFFECTS SURGICAL HISTORY TONSILECTOMY HEMORRHOIDECTOMY HAYLEY SALPINGOOOPHORECTOMY ESOPHAGUS STRETCH 2017 EYE SURGERY X4 MUSCLE ADJUSTMENT LEFT EAR TUBE SOCIAL HISTORY GENERAL: TOBACCO USE ARE YOU A:NONSMOKER LUNG CANCER SCREENING SMOKING STATUS:NON SMOKER ALCOHOL SCREENING DID YOU HAVE A DRINK CONTAINING ALCOHOL IN THE PAST YEAR?NO POINTS0 INTERPRETATIONNEGATIVE BAHAI [id number] NONE LANGUAGE LANGUAGES SPOKEN:PAPUA [place] LEARNING BARRIERS / SPECIAL NEEDS BARRIERS TO LEARNING?YES COMMENTS LONG AND SHORT TERM MEMORY LOSS HEARING IMPAIRED?YES VISION IMPAIRED?YES :CORRECTIVE LENSES COGNITIVELY IMPAIRED?YES :LEARNING DISABILITY READINESS TO LEARN?YES LEARNING PREFERENCES?YES :BOOKLETS, HANDOUTS, DEMONSTRATION/VERBAL INSTRUCTION PAIN CLINIC PFS, CLERGY, PUBLIC HEALTH REFERRALS HAS THE PATIENT BEEN EDUCATED REGARDING HIS/HER PLAN OF CARE?YES HAS THE PATIENT BEEN EDUCATED REGARDING PAIN, THE RISK FOR PAIN, THE IMPORTANCE OF EFFECTIVE PAIN MANAGEMENT, AND THE PAIN ASSESSMENT PROCESS?YES ADVANCE DIRECTIVES HEALTH CARE PROXY?YES NAME OF HCP [place] [facility] CONTACT # FOR HCP [phone] DO YOU HAVE A COPY WITH YOU?NO DO YOU HAVE A DNR?YES DO YOU HAVE A COPY WITH YOU?NO LIVING WILL?NO WOULD YOU LIKE MORE INFORMATION?NO POWER OF DAIRY DEPARTMENT MANAGER?NO WOULD YOU LIKE MORE INFORMATION?NO HOSPITALIZATION/MAJOR DIAGNOSTIC PROCEDURE SURGERY RELATED REVIEW OF SYSTEMS REVIEWED BY: PROVIDER: CRSITINO CHINO MD . CONSTITUTIONAL: ANY CHANGE IN YOUR MEDICAL CONDITION? NO . CHILLS NO . FEVER NO . INFECTION: DO YOU HAVE NEW INFECTIONS? NO . DO YOU HAVE HISTORY OF MRSA? NO . MUSCULOSKELETAL: ANY NEW PATTERNS OF PAIN OR NUMBNESS? NO . GASTROENTEROLOGY: ANY NEW CHANGE IN BOWEL CONTROL? NO . GENITOURINARY: ANY NEW CHANGE IN BLADDER CONTROL? NO . IS THERE A CHANCE YOU COULD BE ? NO . HEMATOLOGY/LYMPH: DO YOU TAKE ANY BLOOD THINNERS? (FOR EXAMPLE- COUMADIN, PLAVIX, AGGRENOX, PLATEL, PRADAXA, OR XARELTO) NO . WHEN WAS YOUR LAST DOSE? DATE: TIME: . NEUROLOGY: HAVE YOU FALLEN IN THE PAST 6 MONTHS? NO . ANY NEW EXTREMITY NUMBNESS OR WEAKNESS? NO . CARDIOLOGY: DO YOU HAVE A PACEMAKER OR DEFIBRILLATOR? NO . RESPIRATORY: HAVE YOU BEEN SICK IN THE PAST WEEK? NO . FEVER NO . FLU LIKE SYMPTOMS? NO . COUGH NO . INTEGUMENTARY: DO YOU HAVE ANY RASHES OR OPEN SORES? NO . ALLERGIC/IMMUNO: ARE YOU ALLERGIC TO SHELLFISH OR IV DYE? NO . ANY NEW ALLERGIES? NO . PSYCHIATRIC: DO YOU HAVE THOUGHTS OF HURTING YOURSELF OR SOMEONE ELSE? NO . ARE YOU ABUSED, NEGLECTED, OR IN AN UNSAFE ENVIRONMENT? NO . ENDOCRINOLOGY: ARE YOU DIABETIC? NO . OTHER: DO YOU NEED ANY PRESCRIPTIONS? NO . IF YES, PLEASE LIST: ____ . ANY NEW PROBLEMS WITH YOUR MEDICATIONS? NO . WHEN DID YOU LAST EAT? ____ . WHEN DID YOU LAST DRINK? ____ . WHAT DID YOU LAST DRINK? ____ . NAME OF PERSON DRIVING YOU HOME? ____ . DO YOU HAVE ANY OTHER QUESTIONS OR CONCERNS NO . VITAL SIGNS WT 198 LBS, HT 69 IN, BMI 29.24 INDEX, BP 144/75 MM HG, HR 96 /MIN, RR 18 /MIN, TEMP 98.6 F, OXYGEN SAT % 96%, NA INITIALS AW 1216, REVIEWED BY: LS. EXAMINATION : PATIENT IS ALERT O X 3 AND COOPERATIVE. TENDERNESS IN THE LOWER BACK AND PARASPINAL MUSCLE GROUP. BANDS OF TISSUE, RESTRICTION OF MOVEMENT, AND PRESENCE OF TRIGGER POINTS IN THE LOWER BACK AREA. MRI OF THE LUMBAR SPINE DONE ON 08/10/15 SHOWS A DISC PROTRUSTION AT L3-L4. ASSESSMENTS MYALGIA - M79.1 (PRIMARY) INTERVERTEBRAL DISC DISORDER WITH RADICULOPATHY OF LUMBAR REGION - M51.16 TREATMENT MYALGIA NOTES: WE DISCUSSED SEVERAL ISSUES WITH MRS. VOSS'S PAIN MANAGEMENT CASE. AT THIS TIME DUE TO THE PATIENT'S SIGNIFICANT PAIN I WOULD LIKE HER TO USE TORADOL FOR 5 DAYS TO GET THE PAIN UNDER CONTROL. PATIENT WAS ADVISED TO USE THIS MEDICATION WITH FOOD AND TO STOP IF SHE HAS ANY ADVERSE SIDE EFFECTS. WE DISCUSSED THE POSSIBILITY OF THE TRIGGER POINT CAUSING THIS PAIN WHICH I BELIEVE DID NOT AND WOULD NOT DISRUPT BLOOD FLOW TO THE LEG. PATIENT WILL RETURN IN ONE WEEK AFTER THE PAIN IS MANAGED AND WE ARE ABLE TO DISCUSS FURTHER INTERVENTIONS. INSTRUCTIONS WERE GIVEN, QUESTIONS WERE ANSWERED, PATIENT REPORTS UNDERSTANDING AND AGREES WITH THE PLAN. I, MERE LENTZ, DOCUMENTED THE ABOVE INFORMATION ACTING A SCRIBE FOR DR. CHINO. I HAVE REVIEWED THE ABOVE DOCUMENT, WRITTEN BY MERE SOLITARIO AND I VERIFY THAT IT IS ACCURATE. OTHERS START KETOROLAC TROMETHAMINE TABLET, 10 MG, 1 TABLET WITH FOOD OR MILK NEEDED, ORALLY FOR PAIN, EVERY 6 HRS MDD4, 5 DAY(S), 20, REFILLS 0 PROCEDURE CODES FA211 ESTABILISHED PATIENT [facility] FACILITY CHARGE G8427 DOC MEDS VERIFIED W/PT OR RE G8730 PAIN ASSESS POS TOOL F/U PLAN DOC DISPOSITION & COMMUNICATION FOLLOW UP 1 WEEK ELECTRONICALLY SIGNED BY CRISTINO CHINO MD ON 04/09/2017 AT 01:02 PM EDT DISCLAIMER : THIS IS A VISIT SUMMARY EXTRACTED FROM THE [employer] CHART. IT IS NOT A COPY OF THE [employer] PROGRESS NOTE. LOPEZ
== END ==
LOC: M PAIN 11:45
PROVIDERS: ATTEND Anesthesiology
DX: M79.1 Myalgia (principal); M51.16 Intervertebral disc disorders with radiculopathy, lumbar region; Z79.899 Other long term (current) drug therapy; Z88.1 Allergy status to other antibiotic agents; Z88.8 Allergy status to other drugs, medicaments and biological substances

== ENCOUNTER 2019-04-16 19:03 | Emergency (ER) | payer BC, OTHER, MEDICAID ==
[~2019-04-16] VITALS: Ht 175.3 cm; Wt 65.9 kg
[~2019-04-16 19:03] MED LIST changes: -/ESCI10TA; +LEXA1TAB
[2019-04-16 19:57] LABS: HEMATOCRIT 47.2 % (36.0-47.0); HEMOGLOBIN 15.6 g/dl (12.0-15.5); MEAN CORPUSCULAR HEMOGLOBIN 26.3 pg (27.0-33.0); MEAN CORPUSCULAR HGB CONC 33.1 g/dl (32.0-36.5); MEAN CORPUSCULAR VOLUME 79.6 fl (80.0-96.0); PLATELET COUNT, AUTOMATED 278 10^3/uL (150-450); RED BLOOD COUNT 5.93 10^6/uL (4.00-5.40); WHITE BLOOD COUNT 9.6 10^3/uL (4.0-10.0)
[2019-04-16] MEDS ORDERED: PREDOPD OS (20:00)
[2019-04-16] MEDS ORDERED: HYDR4TAB PO (20:00)
[2019-04-16] MEDS ORDERED: SUMA100T2 PO (20:00)
[2019-04-16] MEDS ORDERED: LORA0.5T11 (20:00)
[2019-04-16] MEDS ORDERED: DIAZ5TAB (20:00)
[2019-04-16] MEDS ORDERED: ONDA4TAB5 PO (20:00)
[2019-04-16] MEDS ORDERED: DICL50TAB PO (20:00)
[2019-04-16] MEDS ORDERED: OXYC-517 (20:00)
[2019-04-16] MEDS ORDERED: HYDR50TA70 PO (20:00)
[2019-04-16] MEDS ORDERED: SUMAtriptan SUCCINATE 6 MG/0.5 ML VIAL SC ONE (20:30)
[2019-04-16 20:42] LABS: ACETAMINOPHEN LEVEL < 2.0 UG/ML (10.0-30.0); ALBUMIN 3.2 GM/DL (3.2-5.2); ALT/SGPT 38 U/L (12-78); BILIRUBIN,DIRECT 0.2 MG/DL (0.0-0.2); BILIRUBIN,TOTAL 0.8 MG/DL (0.2-1.0); BLOOD UREA NITROGEN 20 MG/DL (7-18); CALCIUM LEVEL 8.4 MG/DL (8.8-10.2); CARBON DIOXIDE LEVEL 25 MEQ/L (21-32); CHLORIDE LEVEL 111 MEQ/L (98-107); CREATININE FOR GFR 0.98 MG/DL (0.55-1.30); ETHYL ALCOHOL (ETHANOL) < 0.003 % (0.000-0.010); GLOMERULAR FILTRATION RATE > 60.0 (>45); GLUCOSE, FASTING 91 MG/DL (70-100); POTASSIUM SERUM 3.5 MEQ/L (3.5-5.1); SALICYLATE LEVEL < 1.7 MG/DL (5.0-30.0); SODIUM LEVEL 143 MEQ/L (136-145)
[2019-04-16 23:11] LABS: AMPHETAMINES LEVEL URINE NEGATIVE (NEGATIVE); BARBITURATES URINE NEGATIVE (NEGATIVE); BENZODIAZEPINES URINE POSITIVE (NEGATIVE); CANNABINOIDS URINE POSITIVE (NEGATIVE); COCAINE METABOLITE URINE NEGATIVE (NEGATIVE); METHADONE URINE NEGATIVE (NEGATIVE); OPIATES URINE NEGATIVE (NEGATIVE); PHENCYCLIDINE URINE NEGATIVE (NEGATIVE)
[2019-04-16] MEDS ORDERED: AZEL1SPR3 NARES (23:44)
[2019-04-16] MEDS ORDERED: ESTRADIOL CREAM TOP (23:44)
[2019-04-16] MEDS ORDERED: KETO10TAB PO (23:44)
[2019-04-16] MEDS ORDERED: BENA25CA4 PO (23:45)
[2019-04-16] MEDS ORDERED: LIDO5TD TOP (23:45)
[2019-04-17] MEDS ORDERED: HYDROmorphone 2 MG TAB PO ONE (08:00)
[2019-04-17] MEDS ORDERED: PRED5TA PO (08:22)
[2019-04-17] MEDS ORDERED: OXYC-517 PO (08:22)
[2019-04-17] MEDS ORDERED: DIAZ10TA2 PO (08:22)
[2019-04-17] MEDS ORDERED: SUMA6KIT SC (08:22)
[2019-04-17] MEDS ORDERED: ATIV1TAB10 PO (08:22)
[2019-04-17] MEDS ORDERED: diphenhydrAMINE 50 MG CAP PO ONE (10:45)
[2019-04-17] MEDS ORDERED: PSEUDOEPHEDRINE 30 MG TAB PO ONE (15:00)
[2019-04-17 18:41] VITALS: BP 128/68
== END 2019-04-17 18:45 ==
LOC: M ED 19:03
DX: R45.851 Suicidal ideations (principal); T42.0X2A Poisoning by hydantoin derivatives, intentional self-harm, initial encounter; F32.9 Major depressive disorder, single episode, unspecified; G43.709 Chronic migraine without aura, not intractable, without status migrainosus; Z87.820 Personal history of traumatic brain injury; Z79.899 Other long term (current) drug therapy; Z91.041 Radiographic dye allergy status; Z88.0 Allergy status to penicillin; Z88.2 Allergy status to sulfonamides; Z88.1 Allergy status to other antibiotic agents; Z88.8 Allergy status to other drugs, medicaments and biological substances
CPT/HCPCS: 80048; 80076; 80307; 81001; 84443; 85027; 87086; 99284; G0480

== ENCOUNTER 2019-12-12 11:49 | Emergency (ER) | payer BC, OTHER, MEDICAID ==
[~2019-12-12] VITALS: Ht 175.3 cm; Wt 81.8 kg
[~2019-12-12 11:49] MED LIST changes: +ATIV1TAB10 PO; +AZEL1SPR3 NARES; +BENA25CA4 PO; +DIAZ10TA2 PO; +DIAZ5TAB; +DICL50TAB PO; +ESTRADIOL CREAM TOP; +HYDR4TAB PO; +HYDR50TA70 PO; +KETO10TAB PO; +LIDO5TD TOP; +LORA0.5T5; +ONDA-83 PO; +OXYC-517; +OXYC-517 PO; +PRED5TA PO; +PREDOPD OS; +SUMA100T2 PO; +SUMA6KIT SC
[2019-12-12 13:55] LABS: HEMATOCRIT 51.3 % (36.0-47.0); HEMOGLOBIN 16.3 g/dl (12.0-15.5); MEAN CORPUSCULAR HEMOGLOBIN 25.6 pg (27.0-33.0); MEAN CORPUSCULAR HGB CONC 31.8 g/dl (32.0-36.5); MEAN CORPUSCULAR VOLUME 80.5 fl (80.0-96.0); PLATELET COUNT, AUTOMATED 285 10^3/uL (150-450); RED BLOOD COUNT 6.37 10^6/uL (4.00-5.40); WHITE BLOOD COUNT 7.3 10^3/uL (4.0-10.0)
[2019-12-12 14:20] LABS: AMPHETAMINES LEVEL URINE NEGATIVE (NEGATIVE); BARBITURATES URINE NEGATIVE (NEGATIVE); BENZODIAZEPINES URINE POSITIVE (NEGATIVE); CANNABINOIDS URINE POSITIVE (NEGATIVE); COCAINE METABOLITE URINE NEGATIVE (NEGATIVE); METHADONE URINE NEGATIVE (NEGATIVE); OPIATES URINE POSITIVE (NEGATIVE); PHENCYCLIDINE URINE NEGATIVE (NEGATIVE)
[2019-12-12 14:36] LABS: ACETAMINOPHEN LEVEL < 2.0 UG/ML (10.0-30.0); ALT/SGPT 20 U/L (12-78); BILIRUBIN,DIRECT 0.2 MG/DL (0.0-0.2); BILIRUBIN,TOTAL 0.9 MG/DL (0.2-1.0); BLOOD UREA NITROGEN 25 MG/DL (7-18); CALCIUM LEVEL 9.1 MG/DL (8.8-10.2); CARBON DIOXIDE LEVEL 24 MEQ/L (21-32); CHLORIDE LEVEL 110 MEQ/L (98-107); CREATININE FOR GFR 1.07 MG/DL (0.55-1.30); ETHYL ALCOHOL (ETHANOL) < 0.003 % (0.000-0.010); GLOMERULAR FILTRATION RATE 55.3 (>45); GLUCOSE, FASTING 73 MG/DL (70-100); POTASSIUM SERUM 3.9 MEQ/L (3.5-5.1); SALICYLATE LEVEL < 1.7 MG/DL (5.0-30.0); SODIUM LEVEL 142 MEQ/L (136-145); THYROID STIMULATING HORMONE 0.904 uIU/ML (0.358-3.740); TOTAL PROTEIN 6.7 GM/DL (6.4-8.2)
[2019-12-12] MEDS ORDERED: AMIT24CA7 PO (15:59)
[2019-12-12] MEDS ORDERED: SUMAtriptan SUCCINATE 25 MG TAB PO ONE (16:00)
--- NOTE | 2019-12-12 16:13 | ECGEPIP ---
[facility] - ED Test Date: 2019-12-12 Pat Name: NEERU VOSS Department: Room: - Gender: Female Soccer Referee: JUAN JOSE : 1955 Requested By: JATIN LUNA Order Number: [id number] Reading MD: Estella Hatch Measurements Intervals [place] Rate: 87 P: 50 [place]: 186 QRS: -24 QRSD: 90 T: 30 QT: 376 QTc: 454 Interpretive Statements SINUS RHYTHM INFERIOR MYOCARDIAL INFARCTION, PROBABLY OLD ANTEROSEPTAL MYOCARDIAL INFARCTION, PROBABLY OLD NSTTW abnormalities NO PRIOR Electronically Signed on 12-12-2019 16:13:15 EDT by Estella Hatch
[2019-12-12] MEDS ORDERED: diazePAM 10 MG TAB PO ONE (18:30)
[2019-12-12] MEDS ORDERED: hydrOXYzine 50 MG TAB PO ONE (18:30)
[2019-12-12 19:42] VITALS: BP 131/91
== END 2019-12-12 19:43 ==
LOC: M ED 11:49
DX: R45.851 Suicidal ideations (principal); Z79.899 Other long term (current) drug therapy; Z85.828 Personal history of other malignant neoplasm of skin; Z87.820 Personal history of traumatic brain injury; Z88.0 Allergy status to penicillin; Z88.2 Allergy status to sulfonamides; Z88.6 Allergy status to analgesic agent; Z88.8 Allergy status to other drugs, medicaments and biological substances; Z91.041 Radiographic dye allergy status
CPT/HCPCS: 80048; 80076; 80307; 84443; 85027; 87486; 87581; 87633; 87798; 93005; 99284; G0480

== ENCOUNTER → 2021-01-16 | Outpatient (REF) | payer BC, OTHER, MEDICAID ==
[~2021-01-16] MED LIST changes: +AMIT24CA7 PO
== END ==
LOC: M LAB REF 19:28
PROVIDERS: ATTEND Physician Assistant
DX: L57.0 Actinic keratosis (principal)

== ENCOUNTER → 2022-06-10 | Outpatient (REF) ==
[~2022-06-10] MED LIST changes: +SUMA6CAR SC; -SUMA6KIT SC
== END ==
LOC: M LAB LCGH 09:14